=== PATIENT | male | born 1985 | race Two or more races ===

== ENCOUNTER 2017-01-16 22:10 | Emergency (ER) | payer MEDICARE, SELFPAY ==
[~2017-01-16] VITALS: Ht 180.3 cm; Wt 73.0 kg
[2017-01-17] MEDS ORDERED: NALOXONE 0.4 MG/ML, 1ML IM STA (00:32)
[2017-01-17 01:15] VITALS: BP 135/88
== END 2017-01-17 01:20 | disposition left against medical advice (07) ==
LOC: ED 23:59
DX: T40.1X1A Poisoning by heroin, accidental (unintentional), initial encounter (principal); F17.200 Nicotine dependence, unspecified, uncomplicated; F11.10 Opioid abuse, uncomplicated; Y92.9 Unspecified place or not applicable
CPT/HCPCS: 99283

== ENCOUNTER 2018-04-16 16:48 | Emergency (ER) | payer MEDICAID, OTHER ==
[~2018-04-16] VITALS: Ht 180.3 cm; Wt 78.0 kg
[2018-04-16] MEDS ORDERED: SODIUM CHLORIDE 0.9% 1,000 ML IV ONE (16:56)
[2018-04-16] MEDS ORDERED: SODIUM CHLORIDE 0.9% 1,000ML IVBOLUS ONE (17:00)
[2018-04-16] MEDS ORDERED: SODIUM CHLORIDE FLUSH 10ML SYR IVF ONE (17:00)
--- NOTE | 2018-04-16 17:02 | NUR ---
PT BIB [facility] FOR N/V/D FOR 2 DAYS WITH DIFFUSE ABDOMINAL PAIN AND TENDERNESS IN ALL QUADRANTS.
[2018-04-16] MEDS ORDERED: PROMETHAZINE 25 MG/ML, 1ML ONE (18:15)
[2018-04-16 18:20] LABS: BASOPHILS % (AUTO) 0 % (0-1); EOSINOPHILS % (AUTO) 0 % (1-7); LYMPHOCYTES # (AUTO) 0.34 x10^3/uL (1-3.4); LYMPHOCYTES % (AUTO) 4 % (22-44); MD NO; MEAN CORPUSCULAR HEMOGLOBIN 31.3 pg (27.5-34.5); MEAN CORPUSCULAR HGB CONC 34.3 g/dL (33.2-36.2); MEAN CORPUSCULAR VOLUME 91.3 fL (81-97); MEAN PLATELET VOLUME 7.4 fL (7.4-10.4); MONOCYTES # (AUTO) 0.36 x10^3/uL (0.2-0.8); MONOCYTES % (AUTO) 4 % (2-9); NEUTROPHILS # (AUTO) 8.08 x10^3/uL (1.8-6.8); NEUTROPHILS % (AUTO) 92 % (42-75); PLATELET COUNT 240 x10^3/uL (130-400); RED BLOOD COUNT 5.79 x10^6/uL (4.38-5.82); RED CELL DISTRIBUTION WIDTH 14.4 % (9.4-14.8)
[2018-04-16 18:22] LABS: ALANINE AMINOTRANSFERASE 61 U/L (12-78); ALBUMIN 4.9 g/dL (3.4-5.0); ANION GAP 22 mmol/L (5-15); CALCIUM 9.4 mg/dL (8.5-10.1); CHLORIDE 99 mmol/L (98-107); CREATININE 1.06 mg/dL (0.7-1.3)
[2018-04-16 18:27] LABS: ALKALINE PHOSPHATASE 125 U/L (45-117); BILIRUBIN,TOTAL 0.7 mg/dL (0.2-1.0); TOTAL PROTEIN 9.4 g/dL (6.4-8.2)
[2018-04-16] MEDS ORDERED: PROMETHAZINE 25 MG/ML, 1ML IM ONE (18:30)
[2018-04-16 19:29] VITALS: BP 174/106
--- NOTE | 2018-04-16 19:39 | NUR ---
PT STATES HE IS FEELING BETER AFTER MEDS AND 1 LITER OF NS
[2018-04-16] MEDS ORDERED: METOCLOPRAMIDE 5 MG/ML, 2ML ONE (19:58)
[2018-04-16] MEDS ORDERED: METOCLOPRAMIDE 5 MG/ML, 2ML IVPush ONE (20:00)
[2018-04-16 20:23] LABS: MICROSCOPIC NOT IND
[2018-04-16 20:34] LABS: CULTURE INDICATED? NO
== END 2018-04-16 21:33 | disposition home or self-care (01) ==
LOC: ED 21:10
DX: R11.2 Nausea with vomiting, unspecified (principal); E86.0 Dehydration; R10.9 Unspecified abdominal pain; Z87.891 Personal history of nicotine dependence
CPT/HCPCS: 36415; 74022; 80053; 81003; 83690; 85025; 96361; 96374; 99284; J2765; J7030